=== PATIENT | female | born 1950 | race Caucasian/White ===

== ENCOUNTER 2017-09-30 07:22 | Inpatient (IN) | payer MEDICARE, OTHER ==
[2017-09-28 14:17] LABS: BASOPHILS % 0.6 % (0.0-1.0); EOSINOPHILS # (AUTO) 0.2 (0.0-0.4); EOSINOPHILS % 2.9 % (0.0-6.0); HEMATOCRIT 38.2 % (34.2-44.1); HEMOGLOBIN 12.4 g/dL (12.0-16.0); LYMPHOCYTES % 28.7 % (18.0-39.1); MEAN CORPUSCULAR HEMOGLOBIN 30.8 pg (28-32); MEAN CORPUSCULAR HGB CONC 32.5 g/dL (31-35); MONOCYTES # (AUTO) 0.4 (0.2-0.8); MONOCYTES % 6.1 % (4.4-11.3); NEUTROPHILS # (AUTO) 4.2 (2.1-6.9); NEUTROPHILS % 61.3 % (38.7-80.0); PLATELET COUNT 200 x10e3/uL (140-360); RED BLOOD COUNT 4.02 x10e6/uL (3.6-5.1); RED CELL DISTRIBUTION WIDTH 12.9 % (11.7-14.4)
--- NOTE | 2017-09-28 14:38 | Diagnostic Imaging Report ---
PROCEDURE: X-RAY CHEST, TWO VIEWS COMPARISON: Chest x-ray 11/16/13 INDICATIONS: PRE-OP ON BLADDER FINDINGS: LUNGS: No soft tissue mass or infiltrate. Pulmonary vascular markings are normal. PLEURA: No effusions or pneumothorax. HEART \T\ MEDIASTINUM: Normal. No hilar lymphadenopathy. BONES \T\ SOFT TISSUES: Fusion plate in the lower cervical spine is partially visualized on lateral projection. There are mild degenerative changes of the spine consistent with age. Surgical clips in the upper abdomen are stable. No free air beneath the diaphragm. CONCLUSION: No active cardiopulmonary disease. Dictated by: Cecily Mathias M.D. on 09/28/2017 at 14:48 Electronically approved by: Cecily Mathias M.D. on 09/28/2017 at 14:48
[~2017-09-30] VITALS: Ht 154.9 cm; Wt 76.3 kg
[~2017-09-30 07:22] MED LIST: ALLOPURINOL100 MG PO; ALPRAZOLAM0.5 MG PO; ASPIRIN CHEW81 MG PO; CEFTIN500 MG PO; DICLOFENAC POTA50 MG; GEMFIBROZIL600 MG; KEFLEX500 MG PO; LISINOPRIL10 MG; LISINOPRIL20 MG PO; LOVASTATIN20 MG; LOVASTATIN40 MG PO; NEXIUM40 MG PO; NORCO 7.5-3251 EACH PO; NYSTATIN15 GM; PANTOPRAZOLE SO40 MG PO; TRAMADOL HCL100 MG; TYLENOL WITH C1 EACH PO; URIBEL CAPSULE1 EACH PO; VITAMIN D1000 UNI1 PO; ZORVOLEX PO
--- OUTSIDE RECORDS SUMMARY | 2017-09-30 07:24 | XMS REPORT ---
Author Author [facility] Address Unknown Phone Unavailable Care Team Providers Care Conference Interpreter Name Role Phone ARCHIE FUENTES Unavailable Unavailable WAI GIORDANO Unavailable Unavailable Problems This patient has no known problems. Allergies, Adverse Reactions, Alerts This patient has no known allergies or adverse reactions. Medications This patient has no known medications. Results Test Description Test Time Test Comments Text Results Atomic Results Result Comments CHEST 2 VIEWS [place] [address] Patient Name: PAYTON GARCIA MR #: [id number] : 1950 Age/Sex: 67/F Req #: [id number] Adm Physician: Ordered by: EL ALY MD Report #: [id number] Location: OR Room/Bed: Procedure: [id number] DX/CHEST 2 VIEWS Exam Date: 09/28/17 Exam Time: 1415 REPORT STATUS: Signed PROCEDURE: X-RAY CHEST, TWO VIEWS COMPARISON: Chest x-ray 11/16/13 INDICATIONS: PRE-OP ON BLADDER FINDINGS: LUNGS: No soft tissue mass or infiltrate. Pulmonary vascular markings are normal. PLEURA: No effusions or pneumothorax. HEART T MEDIASTINUM: Normal. No hilar lymphadenopathy. BONES T SOFT TISSUES: Fusion plate in the lower cervical spine is partially visualized on lateral projection. There are mild degenerative changes of the spine consistent with age. Surgical clips in the upper abdomen are stable. No free air beneath the diaphragm. CONCLUSION: No active cardiopulmonary disease. Dictated by: Tanika Mathias M.D. on 2017 at 14:48 Electronically approved by: Tanika Mathias M.D. on 2017 at 14:48 Dictated By: TANIKA MATHIAS MD 47 Transcribed By : MAURA on 09/28/171447 COPY TO: EL ALY MD CT ABDOMEN/PELVIS WO [place] [address] Patient Name: PAYTON GARCIA MR #: [id number] : 1950 Age/Sex: 67/F Req #: [id number] Adm Physician: Ordered by: WAI GIORDANO MD Report #: [id number] Location: ER Room/Bed: Procedure: [id number] CT/CT ABDOMEN/PELVIS WO Exam Date: 07/04/17 Exam Time: 2056 REPORT STATUS: Signed EXAM: CT ABDOMEN/ PELVIS WO DATE: 07/04/2017 8:35 PM INDICATION: UTI COMPARISON: 2015 TECHNIQUE: The abdomen and pelvis were scanned using a multidetector helical scanner. Coronal and sagittal reformations were obtained. Routine protocol performed. IV Contrast: None FINDINGS: Lack of IV contrast decreases sensitivity in evaluating abdominal and pelvic organs. LOWER THORAX: Stable 4 mm left lower lobe nodule LIVER/BILIARY: No masses. No ductal dilatation. GALLBLADDER: Surgically absent SPLEEN: Unremarkable PANCREAS: Unremarkable ADRENALS: No nodules KIDNEYS: No hydronephrosis or stone disease. GI TRACT: No distention, wall thickening or evidence of obstruction. Normal appendix. VESSELS: Mild atherosclerotic calcifications PERITONEUM/RETROPERITONEUM: No free air or fluid LYMPH NODES: No lymphadenopathy REPRODUCTIVE ORGANS/BLADDER: Status post hysterectomy. Bladder is unremarkable. SOFT TISSUES: Bilateral gluteal injection granulomas. BONES: Scattered degenerative changes with mild lower lumbar facet arthrosis. IMPRESSION: No acute abnormality. Signed by: Dr Susan Nuñez MD on 07/04/2017 9:32 PM Dictated By: SUSAN NUÑEZ MD 31 Transcribed By: KOSTAS on 07/04/172131 COPY TO: WAI GIORDANO MD
[2017-09-30] MEDS ORDERED: CEFOXITIN SOD 1 GM VIAL ONE (07:30)
[2017-09-30] MEDS ORDERED: CLINDAMYCIN 600MG/D5W 50ML 50 ML IV ONE (07:30)
[2017-09-30] MEDS: PIPER-TAZ 3.375 GM 50 ML ONE ×2 (07:38→07:39)
[2017-09-30] MEDS ORDERED: BELLADONNA/OPIUM 60 MG SUPP PR ONE (09:23)
[2017-09-30] MEDS ORDERED: IOPAMIDOL 610MG/1ML 300 MG/ML VIAL IV ONE (09:23)
[2017-09-30] MEDS ORDERED: MUPIROCIN 2% OINT 22 GM TUBE ONE (09:33)
[2017-09-30] MEDS ORDERED: METHYLENE BLUE 1% INJ 10 ML VIAL INJ ONE (09:34)
[2017-09-30] MEDS ORDERED: LIDOCAINE 1% W/EPINEPHRINE 20 ML VIAL ONE (09:47)
[2017-09-30] MEDS ORDERED: NEOSTIGMINE 1 MG/ML 10ML VIAL ONE (11:33)
[2017-09-30] MEDS ORDERED: MORPHINE SULFATE 2 MG/ML SYR ONE (12:11)
[2017-09-30] MEDS: D5.45%NS/KCL 20MEQ 1,000 ML IV SCH ×2 (12:20→20:10)
[2017-09-30] MEDS ORDERED: SIMETHICONE 80 MG CHEW PO PRN (12:30)
[2017-09-30] MEDS ORDERED: HYDROCODONE/APAP 5MG-325MG TAB PO PRN (12:30)
[2017-09-30] MEDS ORDERED: DOCUSATE SODIUM 100 MG CAP PO PRN (12:30)
[2017-09-30] MEDS ORDERED: MORPHINE SULFATE INJ 10 MG/ML ONE (12:30)
[2017-09-30] MEDS ORDERED: ACETAMINOPHEN 325 MG TAB PO PRN (12:30)
[2017-09-30] MEDS ORDERED: BISACODYL 5 MG TAB EC PO PRN (12:30)
[2017-09-30] MEDS ORDERED: ZOLPIDEM TARTRATE 5 MG TAB PO PRN (12:30)
[2017-09-30] MEDS ORDERED: DIPHENHYDRAMINE HCL 25 MG CAP PO PRN (12:30)
[2017-09-30] MEDS ORDERED: PROMETHAZINE HCL (IM) 25 MG/ML VIAL IV PRN (12:30)
[2017-09-30 13:00] VITALS: BP 123/60
[2017-09-30 13:41] VITALS: BP 123/60
[2017-09-30] MEDS ORDERED: PIPER-TAZ 3.375 GM 50 ML IV SCH (14:00)
[2017-09-30] MEDS: HYDROCODONE/APAP 10MG-325MG TAB PO PRN ×3 (14:01→23:57)
[2017-09-30] MEDS ORDERED: LIDOCAINE HCL 2% LOCAL INJ 5 ML SDV VIAL INJ ONE (14:41)
[2017-09-30] MEDS ORDERED: PROPOFOL IV EMULSION 10 MG/ML 20 ML VIAL ONE (14:41)
[2017-09-30] MEDS ORDERED: ONDANSETRON HCL INJ 2 MG/ML VIAL ONE (14:41)
[2017-09-30] MEDS ORDERED: DEXAMETHASONE SOD PHOS INJ 4 MG/ML VIAL ONE (14:41)
[2017-09-30] MEDS ORDERED: ROCURONIUM BROMIDE 10 MG/ML 5ML VIAL ONE (14:41)
[2017-09-30] MEDS ORDERED: SEVOFLURANE INHAL SOLN 250 ML PEN BTL ONE (14:41)
[2017-09-30 15:30] VITALS: BP 123/60
[2017-09-30] MEDS: ALPRAZOLAM 0.5 MG TAB PO SCH ×2 (15:50→23:56)
[2017-09-30] MEDS: MORPHINE SULFATE 2 MG/ML SYR IV PRN ×2 (15:51→20:20)
[2017-09-30 16:29] VITALS: BP 119/55
[2017-09-30] MEDS: PIPER-TAZ 3.375 GM 50 ML IV SCH (17:05)
[2017-09-30] MEDS ORDERED: MIDAZOLAM HCL 2 MG/2 ML VIAL ONE (18:01)
[2017-09-30] MEDS ORDERED: FENTANYL CITRATE/PF 100MCG/2 ML INJ ONE (18:01)
[2017-09-30 20:00] VITALS: BP 106/52
[2017-09-30 20:10] VITALS: BP 106/52
[2017-09-30] MEDS: ONDANSETRON HCL INJ 2 MG/ML VIAL IV PRN (20:20)
[2017-09-30] MEDS ORDERED: SIMVASTATIN 20 MG TAB PO SCH (21:00)
[2017-10-01] VITALS (9 sets, daily range): BP systolic 88–112; BP diastolic 50–55
[2017-10-01] MEDS: PIPER-TAZ 3.375 GM 50 ML IV SCH ×3 (00:25→17:38)
[2017-10-01] MEDS: D5.45%NS/KCL 20MEQ 1,000 ML IV SCH (04:11)
[2017-10-01] MEDS: MORPHINE SULFATE 2 MG/ML SYR IV PRN ×4 (04:12→23:08)
[2017-10-01] MEDS: ONDANSETRON HCL INJ 2 MG/ML VIAL IV PRN ×2 (04:12→23:08)
[2017-10-01] MEDS: HYDROCODONE/APAP 10MG-325MG TAB PO PRN ×3 (06:23→20:04)
[2017-10-01 06:41] LABS: BASOPHILS % 0.1 % (0.0-1.0); HEMATOCRIT 32.8 % (34.2-44.1); HEMOGLOBIN 10.6 g/dL (12.0-16.0); LYMPHOCYTES # (AUTO) 1.4 (1.0-3.2); LYMPHOCYTES % 9.6 % (18.0-39.1); MEAN CORPUSCULAR HEMOGLOBIN 30.6 pg (28-32); MEAN CORPUSCULAR HGB CONC 32.3 g/dL (31-35); MEAN CORPUSCULAR VOLUME 94.8 fL (81-99); MONOCYTES # (AUTO) 0.9 (0.2-0.8); MONOCYTES % 6.1 % (4.4-11.3); NEUTROPHILS % 83.7 % (38.7-80.0); PLATELET COUNT 173 x10e3/uL (140-360); RED BLOOD COUNT 3.46 x10e6/uL (3.6-5.1); RED CELL DISTRIBUTION WIDTH 12.8 % (11.7-14.4)
[2017-10-01 07:00] LABS: ANION GAP 12.5 mmol/L (8-16); BLOOD UREA NITROGEN 7 mg/dL (7-26); BUN/CREATININE RATIO 9 (6-25); CALCIUM 8.7 mg/dL (8.4-10.2); CARBON DIOXIDE 25 mmol/L (22-29); CHLORIDE 107 mmol/L (98-107); CREATININE, SERUM 0.74 mg/dL (0.57-1.11); EST GLOMERULAR FILTRATION RATE > 60 ML/MIN (60-); GLUCOSE 146 mg/dL (74-118); POTASSIUM 4.5 mmol/L (3.5-5.1); SODIUM 140 mmol/L (136-145)
[2017-10-01] MEDS: ALPRAZOLAM 0.5 MG TAB PO SCH ×3 (08:51→23:08)
[2017-10-01] MEDS: ALLOPURINOL 100 MG TAB PO SCH (08:51)
[2017-10-01] MEDS: PANTOPRAZOLE SOD 40 MG TABEC PO SCH (08:51)
[2017-10-01] MEDS ORDERED: SIMVASTATIN 40 MG TAB PO SCH (21:00)
[2017-10-02 00:43] VITALS: BP 109/53
[2017-10-02] MEDS: PIPER-TAZ 3.375 GM 50 ML IV SCH ×3 (01:30→16:00)
[2017-10-02 04:00] VITALS: BP 112/53
[2017-10-02 07:29] LABS: BASOPHILS # (AUTO) 0.1 (0.0-0.1); BASOPHILS % 0.4 % (0.0-1.0); EOSINOPHILS # (AUTO) 0.1 (0.0-0.4); EOSINOPHILS % 1.2 % (0.0-6.0); HEMATOCRIT 34.3 % (34.2-44.1); HEMOGLOBIN 10.9 g/dL (12.0-16.0); LYMPHOCYTES # (AUTO) 3.5 (1.0-3.2); MEAN CORPUSCULAR HEMOGLOBIN 30.7 pg (28-32); MEAN CORPUSCULAR HGB CONC 31.8 g/dL (31-35); MEAN CORPUSCULAR VOLUME 96.6 fL (81-99); NEUTROPHILS # (AUTO) 7.4 (2.1-6.9); NEUTROPHILS % 60.9 % (38.7-80.0); PLATELET COUNT 172 x10e3/uL (140-360); RED BLOOD COUNT 3.55 x10e6/uL (3.6-5.1); RED CELL DISTRIBUTION WIDTH 13.2 % (11.7-14.4)
[2017-10-02 07:56] VITALS: BP 115/55
[2017-10-02] MEDS: ALLOPURINOL 100 MG TAB PO SCH (08:30)
[2017-10-02] MEDS: PANTOPRAZOLE SOD 40 MG TABEC PO SCH (08:30)
[2017-10-02] MEDS: HYDROCODONE/APAP 10MG-325MG TAB PO PRN ×3 (08:30→18:45)
[2017-10-02 08:43] VITALS: BP 115/55
[2017-10-02] MEDS: ALPRAZOLAM 0.5 MG TAB PO SCH ×2 (09:00→15:00)
[2017-10-02] MEDS: ONDANSETRON HCL INJ 2 MG/ML VIAL IV PRN (11:15)
[2017-10-02] MEDS: MORPHINE SULFATE 2 MG/ML SYR IV PRN (11:15)
[2017-10-02 12:00] VITALS: BP 105/50
[2017-10-02] MEDS ORDERED: LEVAQUIN500 MG PO (14:06)
[2017-10-02] MEDS ORDERED: TYLENOL WITH C1 EACH PO (14:08)
[2017-10-02] MEDS ORDERED: COLACE100 MG PO (14:12)
--- NOTE | 2017-10-02 16:08 | Discharge Summary ---
See also history and physical. The patient was hospitalized essentially for pain control and postoperative followup. On September 30, 2017, the patient underwent cystocele repair with graft and sling, cystoscopy and bilateral retrograde pyelograms. The patient required parenteral analgesics and hypertension control while here. Chemistry was normal except for glucose 146. Patient was counseled regarding the need for followup regarding her glucose and the need for weight reduction. On October 02, 2017, white count was 12.12. October 01 white count was 14.35 and hemoglobin 10.9. October 02, normal indices. Normal differential. Platelet count 172,000 on October 02. September 28 chest x-ray was clear. Patient did have a fusion plate in the lower cervical spine. DJD of the spine. Course was one of progressive improvement. Patient was treated also with pulmonary therapy while here including incentive spirometry. She was cleared on the final hospital morning by her urologist for discharge, and the Rendon had been removed. Blood pressures remained within normal limits. See also prior to admission med list, which will be resumed post discharge. FINAL IMPRESSION 1. Pelvic relaxation and chronic incontinence. Postoperative as above. 2. Hypertension. 3. Degenerative joint disease and chronic pain including chronic sciatica and chronic use of [place] prior to admission. MARILU SMALLS MD Job#: [id number]
--- NOTE | 2017-12-06 12:31 | Operative Report ---
DATE OF PROCEDURE: September 30, 2017 PREOPERATIVE DIAGNOSES 1. Stress type urinary incontinence. 2. Large cystocele. 3. Urinary tract infection. POSTOPERATIVE DIAGNOSES 1. Stress type urinary incontinence. 2. Large cystocele. 3. Urinary tract infection. OPERATIONS PERFORMED 1. Repair of large cystocele. 2. Utilization of a graft in repair of large cystocele. 3. Pubovaginal sling utilizing graft. 4. Cystourethroscopy with bilateral ureteral catheterization and retrograde ureteropyelography. 5. Interpretation of retrograde ureteropyelography. RN PROGRESSIVE CARE UNIT: Dr. Jennifer Sauer MD COMPLICATIONS: None. ANESTHESIA: General. CLINICAL SUMMARY: Melina Yang is a 67-year-old woman with a large cystocele and stress incontinence. She is brought for the above procedures. She is aware of the risks of bleeding, infection, injury to adjacent structures, failure, recurrence, need for additional procedures, and elected to proceed. OPERATIVE PROCEDURE IN DETAIL: Informed consent was verified. Melina Yang was properly identified and taken to the operating room and placed on the operating table in the supine position. Anesthesia was uneventfully begun. The patient was then carefully and gently repositioned in the dorsal lithotomy position with all pressure points carefully well-padded. Her abdomen, genitalia and perineum were shaved, prepared and draped in the usual sterile fashion. Labial stay sutures were placed. Marcaine with epinephrine was utilized to infiltrate submucosally along the anterior vaginal wall. A midline incision was then made and the anterior vaginal wall and bilaterally vaginal wall flaps were developed. We pierced through the endopelvic fascia bilaterally taking care to stay as laterally as possible without injury to the periurethral neurovascular complexes. We then performed a plication type of cystocele repair from the bladder neck to the cephalad most extent of the vaginal dissection. We utilized heavy Vicryl suture in an interrupted fashion, and this resulted in complete reduction of the cystocele. A fascial etienne graft which was previously soaked in antibiotic irrigant was then utilized. It was previously soaked in antibiotic irrigant. We cut it to shape and then took a heavy PDS suture and placed a heavy PDS suture through each end of the graft in helical fashion. Rendon catheter was placed. The bladder was drained. We then utilized the [employer] needle system. We entered the space of Retzius and hugging the posterior surface of the pubis first on the left hand side and then the right hand side. Once the needle was pierced through the anterior abdominal wall tissues, we then dragged up 1 suture pair with PDS sutures through the abdominal wall. Once this was done bilaterally, we then took 3-0 chromic suture and secured the graft to its proper position so it does not float nor migrate. We then utilized the lateral suture passer in the [employer] system to take 1 strand of each PDS suture and tunnel it subcutaneously suprapubically to join its contralateral counterpart. The sutures were then tied down to the level of the skin and knot allowed to fall deep within the suprapubic fat pad thus ensuring a non-lifting, non-constricting sling. Copious irrigation was performed. We verified hemostasis. The vaginal incision was approximated with heavy Vicryl suture in a running fashion. Both stab wounds in the suprapubic area were approximated with interrupted subcuticular suture. The Rendon catheter was removed. Cystoscopy was performed. Panendoscopy revealed no suspicious mucosal lesions. No tumors. No stones. No diverticula. Normally positioned and configured ureteral orifices were identified. Ureteral catheter was used to cannulate each ureter, and retrograde ureteropyelograms were performed. Interpretation of retrograde ureteropyelography. Contrast was instilled in a retrograde fashion bilaterally. No tumors. No stones and no diverticula. Unobstructed drainage was observed bilaterally fluoroscopically. The patient's bladder was then drained. The cystoscope was withdrawn. The Rendon catheter was utilized to drain the bladder. Vaginal packing with antibiotic was placed. Labial stay sutures were removed. Dressings were applied to the stab wounds suprapubically. The patient was then uneventfully reversed from anesthesia and taken to the recovery room in stable condition. There were no complications to the procedure. She tolerated the procedure well. Explicit postoperative instructions were left on the chart. Will follow the patient up during her hospitalization, as well as long-standing as an outpatient. Job#: [id number] MELODY cc:KAVITA HODGSON DO
== END 2017-10-02 18:50 | disposition home or self-care (01) | DRG 748 ==
LOC: OR 07:22 → MED/SURG 13:13
PROVIDERS: ADMIT Internal Medicine; ATTEND Internal Medicine
PROC: BT1F1ZZ Fluoroscopy of Left Kidney, Ureter and Bladder using Low Osmolar Contrast (ICD-10-PCS; 2017-09-30)
PROC: BT1D1ZZ Fluoroscopy of Right Kidney, Ureter and Bladder using Low Osmolar Contrast (ICD-10-PCS; 2017-09-30)
PROC: 0T788ZZ Dilation of Bilateral Ureters, Via Natural or Artificial Opening Endoscopic (ICD-10-PCS; 2017-09-30)
PROC: 0JUC0JZ Supplement of Pelvic Region Subcutaneous Tissue and Fascia with Synthetic Substitute, Open Approach (ICD-10-PCS; principal; 2017-09-30 09:00)
PROC: 0JUC3JZ Supplement of Pelvic Region Subcutaneous Tissue and Fascia with Synthetic Substitute, Percutaneous Approach (ICD-10-PCS; 2017-09-30 09:00)
DX: N81.89 Other female genital prolapse (principal); I10 Essential (primary) hypertension; G89.29 Other chronic pain; M54.30 Sciatica, unspecified side; G89.18 Other acute postprocedural pain; K21.9 Gastro-esophageal reflux disease without esophagitis; N39.46 Mixed incontinence; Z87.891 Personal history of nicotine dependence; D64.9 Anemia, unspecified; E78.5 Hyperlipidemia, unspecified; M10.9 Gout, unspecified; M47.9 Spondylosis, unspecified; Z98.1 Arthrodesis status
CPT/HCPCS: 36415; 71046; 74420; 80048; 85025; 93005; J0694; J1100; J2001; J2250; J2270; J2405; J2543; J2710

== ENCOUNTER → 2018-05-10 | Outpatient (CLI) | payer MEDICARE, OTHER ==
[~2018-05-10] MED LIST changes: +COLACE100 MG PO; +LEVAQUIN500 MG PO
--- NOTE | 2018-05-10 08:49 | Diagnostic Imaging Report ---
PROCEDURE: CT ABDOMEN AND PELVIS WITHOUT CONTRAST TECHNIQUE: The abdomen and pelvis were scanned utilizing a multidetector helical scanner from the diaphragm to the lesser trochanter after the oral administration of water. No intravenous contrast was administered per referring physician request. Coronal and sagittal multiplanar reformations were obtained. COMPARISON: 07/04/2017. INDICATIONS: RENAL STONE FINDINGS: ABSENCE OF INTRAVENOUS CONTRAST DECREASES SENSITIVITY FOR DETECTION OF FOCAL LESIONS AND VASCULAR PATHOLOGY. LOWER THORAX: Unchanged 4 mm nodule in the left lower lobe (series 3 image 13).. HEPATOBILIARY: No focal hepatic lesion or intrahepatic biliary ductal dilatation. The gallbladder has been removed. SPLEEN: No splenomegaly. PANCREAS: No focal masses or ductal dilatation. ADRENALS: No adrenal nodules. KIDNEYS/URETERS: No hydronephrosis. No solid gross renal mass lesion. No renal, ureteral, or bladder calculi. PELVIC ORGANS/BLADDER: The urinary bladder is incompletely distended but otherwise unremarkable. The uterus is not identified and has presumably been removed. No adnexal mass. PERITONEUM / RETROPERITONEUM: No ascites. No pneumoperitoneum. LYMPH NODES: No pelvic sidewall, retroperitoneal, or mesenteric lymphadenopathy. VESSELS: Atherosclerotic calcification of the abdominal aorta without aneurysmal dilatation. Evaluation is otherwise limited in the absence of intravenous contrast. GI TRACT: The large bowel shows no distention or wall thickening. Gas and fecal material are noted throughout. The appendix is normal. There is no small bowel dilatation to suggest obstruction. BONES AND SOFT TISSUES: Postsurgical changes of the low anterior abdominal wall. Multiple calcified injection granulomata in the subcutaneous fat of the gluteal regions. No osseous destructive lesions. Multilevel degenerative disc changes and facet arthropathy of the lower lumbar spine. IMPRESSION: No acute intra-abdominal or pelvic CT abnormalities. No CT evidence of urolithiasis. Atherosclerotic vascular disease. Dictated by: Zeferino Barreto M.D. on 05/10/2018 at 8:56 Electronically approved by: Zeferino Barreto M.D. on 05/10/2018 at 8:56
== END ==
LOC: CT 07:45
PROVIDERS: ATTEND Urology
DX: N39.0 Urinary tract infection, site not specified (principal); Z87.442 Personal history of urinary calculi
CPT/HCPCS: 74176

== ENCOUNTER → 2019-02-07 | Outpatient (CLI) | payer MEDICARE, OTHER ==
--- NOTE | 2019-02-07 16:45 | Diagnostic Imaging Report ---
Exam: Lumbar spine MRI without IV contrast History: Left-sided sciatica with left hip and leg pain Comparison studies: Included spine from abdomen pelvis CT of 07/04/2017. Technique: Sagittal and axial T2 , sagittal T1 and IR, axial spin density oblique. Intravenous contrast: None Findings: Number of lumbar vertebral bodies: 5. Alignment: Normal lordosis. No scoliosis. Soft tissues: No T2 hyperintense inflammatory changes. Dorsal paraspinal musculature: Mild symmetric fatty-replaced atrophic changes bilaterally. Lower thoracic cord: Normal in signal and morphology. The tip of the conus is at L1. Cauda equina: No masses. No arachnoiditis. Vertebrae: No compression fractures, infection or neoplasm. Degenerative changes: L1-L2: No abnormalities L2-L3: Mildly degenerated disc with loss of T2 disc signal. Asymmetric left disc bulge does not result in canal or foraminal stenosis per L3-L4: Mildly degenerated disc with loss of T2 disc signal. Symmetric disc bulge and moderate left and mild right facet arthrosis without significant canal or foraminal stenosis per L4-L5: Mildly degenerated disc with loss of T2 disc signal. Disc bulge with superimposed small left subarticular disc protrusion, left foraminal disc osteophyte complex, thickened ligamentum flavum and severe left and mild right facet arthrosis with moderate left foraminal stenosis. Disc protrusion abuts but does not compress the left L5 nerve root. Mild left facet joint synovitis with mild widening of the left facet joint joint effusion. L5-S1: Mild facet arthrosis. Patent canal and foramina. Sacroiliac joints: Mild degenerative changes bilaterally. No marrow edema or joint effusion. IMPRESSION: 1. Mildly degenerated disks from L2 to S1. 2. Small L4-L5 disc protrusion abuts but does not compress the left L5 nerve root. 3. Moderate left L4-L5 degenerative foraminal stenosis. 4. Facet arthrosis from L3 to S1, worse/severe on the left at L4-L5 where there is associated synovitis. Signed by: Dr. Zeferino Argueta M.D. on 02/07/2019 4:41 PM
== END ==
LOC: MRI 10:27
PROVIDERS: ATTEND Family Medicine
DX: M54.32 Sciatica, left side (principal); M53.3 Sacrococcygeal disorders, not elsewhere classified; M45.3 Ankylosing spondylitis of cervicothoracic region
CPT/HCPCS: 72148

== ENCOUNTER 2023-12-14 09:00 | Outpatient (RCR) | payer MEDICARE, OTHER | END 2023-12-15 | LOC: PT 09:00 | PROVIDERS: ATTEND Specialist | DX: M54.50 Low back pain, unspecified (principal); M62.81 Muscle weakness (generalized); M53.86 Other specified dorsopathies, lumbar region ==

== ENCOUNTER → 2024-05-19 | Day surgery (SDC) | payer MEDICARE, OTHER ==
[2024-05-13 10:11] LABS: BASOPHILS # (AUTO) 0.1 (0.0-0.1); BASOPHILS % 0.6 % (0.0-1.0); EOSINOPHILS # (AUTO) 0.2 (0.0-0.4); EOSINOPHILS % 2.3 % (0.0-6.0); HEMATOCRIT 38.7 % (34.2-44.1); HEMOGLOBIN 12.4 g/dL (12.0-16.0); LYMPHOCYTES % 25.4 % (18.0-39.1); MEAN CORPUSCULAR HEMOGLOBIN 31.2 pg (28-32); MEAN CORPUSCULAR VOLUME 97.2 fL (81-99); MONOCYTES # (AUTO) 0.8 (0.2-0.8); MONOCYTES % 10.2 % (4.4-11.3); NEUTROPHILS # (AUTO) 4.8 (2.1-6.9); NEUTROPHILS % 61.1 % (38.7-80.0); PLATELET COUNT 199 x10e3/uL (140-360); RED BLOOD COUNT 3.98 x10e6/uL (3.6-5.1); RED CELL DISTRIBUTION WIDTH 13.7 % (11.7-14.4); WHITE BLOOD COUNT 7.88 x10e3/uL (4.8-10.8)
[~2024-05-19] MED LIST changes: +ACETAMINOPHEN-1 EAC4 PO; +CARAFATE1 GM/10 ML PO; +LIDOCAINE HCL 2% LOCAL INJ 5 ML SDV VIAL INJ ONE; +LIPITOR10 MG PO; +METOCLOPRAMIDE HCL 10 MG/2ML VIAL ONE; +PLAVIX75 MG PO; +PROPOFOL IV EMULSION 10 MG/ML 20 ML VIAL ONE; +ZINC PO
[2024-05-19] MEDS: LACTATED RINGER'S 1,000 ML ONE (10:42)
[2024-05-19 13:20] VITALS: BP 136/78; PULSE 87; RESP 16; O2SAT 100
== END | disposition home or self-care (01) ==
LOC: OR 09:21
PROVIDERS: ATTEND Internal Medicine Gastroenterology
DX: K29.00 Acute gastritis without bleeding (principal); Z86.0100 Personal history of colon polyps, unspecified; K29.50 Unspecified chronic gastritis without bleeding; K21.9 Gastro-esophageal reflux disease without esophagitis; K59.00 Constipation, unspecified; K20.90 Esophagitis, unspecified without bleeding; K44.9 Diaphragmatic hernia without obstruction or gangrene; K56.609 Unspecified intestinal obstruction, unspecified as to partial versus complete obstruction; I10 Essential (primary) hypertension; E78.5 Hyperlipidemia, unspecified; F41.9 Anxiety disorder, unspecified; G89.29 Other chronic pain; Z88.2 Allergy status to sulfonamides; Z88.1 Allergy status to other antibiotic agents; Z91.041 Radiographic dye allergy status; Z01.810 Encounter for preprocedural cardiovascular examination; Z01.812 Encounter for preprocedural laboratory examination; Z86.73 Personal history of transient ischemic attack (TIA), and cerebral infarction without residual deficits
CPT/HCPCS: 36415; 43239; 45330; 85025; 88305; 88342; 93005; J2001; J2470; J2704; J2765; J7121; 45378; J2003

== ENCOUNTER → 2024-05-30 | Outpatient (REF) | payer MEDICARE, OTHER ==
[~2024-05-30] MED LIST changes: -LIDOCAINE HCL 2% LOCAL INJ 5 ML SDV VIAL INJ ONE; -METOCLOPRAMIDE HCL 10 MG/2ML VIAL ONE; -PROPOFOL IV EMULSION 10 MG/ML 20 ML VIAL ONE
== END ==
LOC: DX 09:37
PROVIDERS: ATTEND Internal Medicine Gastroenterology
DX: Z86.0100 Personal history of colon polyps, unspecified (principal)
CPT/HCPCS: 74280